=== PATIENT | female | born 2000 | race Hispanic/Latino ===

== ENCOUNTER → 2023-05-20 | Outpatient (CLI) | payer OTHER ==
[2023-05-20 10:06] LABS: PROTHROMBIN TIME 11.6 SEC (9.6-11.6)
[2023-05-20 10:08] LABS: PARTIAL THROMBOPLASTIN TIME 28.1 SEC (26.3-35.5)
== END | disposition home or self-care (01) ==
LOC: RAH 08:48
PROVIDERS: ATTEND Obstetrics & Gynecology
DX: N63.14 Unspecified lump in the right breast, lower inner quadrant (principal); D24.1 Benign neoplasm of right breast; Z91.010 Allergy to peanuts
CPT/HCPCS: 19083; 85610; 85730; 36415; 88305; A4215 ×2; A4648